=== PATIENT | female | born 2000 | race Caucasian/White ===

== ENCOUNTER 2023-03-19 19:12 | Emergency (ER) | payer OTHER, SELFPAY ==
[2023-03-19 19:39] VITALS: BP 131/78; PULSE 89; RESP 18; TEMP 37.1; O2SAT 97; BMI 33.9
[2023-03-19 19:41] VITALS: BP 131/78; PULSE 89; RESP 18; TEMP 37.1; O2SAT 97
[2023-03-19] MEDS: Ibuprofen 600 MG TABLET PO (20:53)
--- NOTE | 2023-03-19 20:55 | ED_ITS ---
HPI - General Adult General Chief complaint: Animal Bite Stated complaint: dog bite on 04/14, reaction to amoxicillin Time Seen by Provider: 03/19/23 20:55 Source: patient and family (Mother) Mode of arrival: ambulatory Limitations: no limitations History of Present Illness HPI narrative: Patient is a 22-year-old female presenting to the emergency department for evaluation of wound to her left hand. Patient was seen at [facility] in the pediatric emergency department immediately following the dog bite. Patient had sutures placed and was started on Augmentin at that time. Patient states that she was directed to take the Augmentin in the morning and before bed. Reports that the Augmentin has cause nausea and vomiting because she has not been taking it with food. She is also concerned that the bite may possibly be infected, concerned for yellow discoloration to fingers and dorsal aspect of her hand. Reports that she has been keeping hand elevated and applying ice intermittently. MD complaint: Wound check Onset (ago): day(s) Location: left and upper extremity Severity: moderate Quality: aching Pain Consistency: constant Relieving factors: none Exacerbating factors: none Associated symptoms: denies other symptoms Treatments prior to arrival: other (Dressing, Augmentin) Related Data Previous Rx's Medication Instructions Recorded ondansetron 4 mg disintegrating 4 mg PO Q8H PRN nausea and 03/19/23 tablet vomiting #10 tabs Allergies Allergy/AdvReac Type Severity Reaction Status Date / Time Penicillins Allergy Hives Verified 03/19/23 20:47 erythromycin Allergy Hives Uncoded 03/19/23 20:47 Review of Systems Review of Systems: As per HPI. Yes all other systems are reviewed and are negative Constitutional: Constitutional: Reports as per HPI [facility] Social History Social History Smoked in Last 30 Days: Yes Use of substances other than those prescribed or required for medical reasons: Yes Substance Use Type: Marijuana Substance Use Frequency: Daily Advance Directives: No Physical Exam ED Vital Signs: Vital Signs - 24 hr 03/19/23 19:39 03/19/23 19:41 Temperature 98.7 F 98.7 F Pulse Rate 89 89 Respiratory Rate 18 18 Blood Pressure 131/78 131/78 Pulse Oximetry 97 97 Oxygen Delivery Method Room Air Room Air BMI result Body Mass Index 33.9 Vital signs have been reviewed and appear to be correct. Blood pressure normal. Heart rate normal. Respiratory rate normal. Temperature normal. Oxygen saturation normal. Const General: cooperative, healthy appearing and no acute distress Orientation/consciousness: oriented to person, oriented to place, oriented to time and patient oriented x3 Limitations: no limitations HENMT Head: Yes normocephalic and Yes atraumatic Ears: external ears normal General nose exam: Normal external nose present Face and sinus: Yes face symmetric Mouth: oropharynx normal and moist mucous membranes Throat: Yes uvula midline Eyes Pupils: Equal, round and reactive pupils present Neck Neck: Yes normal visual inspection and Yes supple Resp Effort & Inspection: normal respiratory effort and able to speak in complete sentences Auscultation: clear to auscultation bilaterally Cardio Rate: regular rate Rhythm: regular rhythm Heart sounds: S1 normal heart sound present and S2 normal heart sound present GI Palpation (GI): Soft to palpation and nontender Auscultation: normoactive bowel sounds General: Yes no CVA tenderness Back/Spine/Pelvis Back: no CVA tenderness Skin General skin exam: elasticity normal and turgor normal Neuro General: oriented to person, oriented to place, oriented to time, patient oriented x3, moves all extremities, no focal motor deficits and CN's II-XI intact bilaterally Cranial nerves: Yes Equal, round and reactive pupils present Cognition (Neuro): normal cognition Extrem General: Yes full ROM, Yes no pedal edema and Yes no calf tenderness Left upper extremity: hand Details: normal capillary refill, vascular exam Details: radial pulse present, normal ROM of fingers, ecchymosis (healing ecchymosis) Location: of the dorsal hand and other (Sutures to dorsal hand clean dry and intact, no drainage, no surrounding erythema or calor, no streaking) Psych Mental Status: mental status grossly normal Affect: normal affect Thought process: Normal thought process present Medications Administered Discontinued Medications Generic Name Dose Route Start Last Admin Trade Name Freq PRN Reason Stop Dose Admin Ibuprofen 600 mg 03/19/23 20:47 03/19/23 20:53 Ibuprofen 600 Mg Tablet PO 03/19/23 20:48 600 mg ONCE ONE Administration Medical Decision Making Medical Decision Making [facility] Narrative: Patient is a 22-year-old female presenting to the emergency department for evaluation of wound to her left hand. On exam patient is awake, A+Ox3, VS WNL, afebrile, normal neurological exam without focal deficits, physical exam findings as above. Given reported symptoms and physical exam findings, initial differential includes cellulitis, tendon injury, vascular injury, adverse medica tion reaction. Discussed with patient that if she does not eat a full meal until 1:00 in the afternoon, she should adjust her medication administration times to be able to take her Augmentin with a full meal. Advised patient to keep the wound clean and dry, change dressing daily to assess for signs of infection. Will prescribe Zofran p.r.n. for nausea. Return precautions discussed with patient and mother. Patient verbalized understanding of and agreement with plan. Differential Diagnosis Differential Diagnoses: The differential diagnosis associated with the presentation includes As per MDM. Independent Historian Clinical information obtained from an independent historian. History obtained from or confirmed by: Parent External Record Review External record reviewed: Inpatient record and Outpatient record Prescription Management I considered prescription management with: Other Discharge Plan Discharge Clinical Impression: Visit for wound check Patient Disposition: Home, Self-Care Instructions: Animal Bite (ED) Additional Instructions: You have been evaluated in the emergency department today for evaluation of dog bite which was sutured at [facility] on 03/15/23. Your wound did not show evidence of infection/cellulitis today. Please continue to take the Augmentin that you were prescribed at [facility]. It is important that you take this medication with food to avoid nausea and vomiting. You are being prescribed ondansetron which you can take up to every 8 hours as needed for nausea. Please change the dressing and assess the wound daily. Keep the area out of direct sunlight for the next 6 months to help prevent scarring. Please follow up as recommended by [facility]. If you develop fever, redness, swelling at the site of your laceration, or thick yellow drainage please come back to the ER for a wound check. Prescriptions: New ondansetron 4 mg tablet,disintegrating 4 mg PO Q8H PRN (Reason: nausea and vomiting) Qty: 10 0RF
== END 2023-03-19 21:37 | disposition home or self-care (01) ==
PROVIDERS: Emergency Provider Emergency Medicine; PCP Pediatrics
DX: S61.452A Open bite of left hand, initial encounter (principal); W54.0XXA Bitten by dog, initial encounter; Y93.9 Activity, unspecified; Y92.9 Unspecified place or not applicable; Y99.9 Unspecified external cause status
CPT/HCPCS: 99284